=== PATIENT | female | born 1945 | race Caucasian/White ===

== ENCOUNTER 2022-04-15 14:52 | Emergency (ER) | payer MEDICARE ==
[~2022-04-15] VITALS: Ht 154.9 cm; Wt 63.5 kg
[2022-04-15] MEDS ORDERED: MEDDOSEPAK PO (17:02)
[2022-04-15 17:41] VITALS: BP 159/70
== END 2022-04-15 17:47 | disposition home or self-care (01) ==
LOC: ED 14:52
DX: S83.92XA Sprain of unspecified site of left knee, initial encounter (principal); X58.XXXA Exposure to other specified factors, initial encounter; M17.12 Unilateral primary osteoarthritis, left knee